=== PATIENT | male | born 1995 | race Caucasian/White ===

== ENCOUNTER 2023-08-07 09:08 | Outpatient (AMB) | payer OTHER, SELFPAY ==
--- NOTE | 2023-08-07 09:23 | A.OFFPC_ITS ---
Vital Signs 08/07/23 09:24 Height 6 ft 1.5 in Weight 212 lb BMI 27.6 BP 126/78 Blood Pressure Location Lt brachial Position Sitting Pulse 101 H Pulse Source Pulse Oximeter Pulse Oximetry (%) 100 Oxygen Delivery Method Room Air Intake Visit Reasons: Establish care PE Intake Note: Pt is here today for PE. Allergies No Known Allergies Allergy (Verified 08/07/23 09:27) Medication List - Last Reconciled 08/07/23 by Alma Vargas MD No Known Home Meds Tobacco use date assessed: 08/07/23 Dental Screening Dental Screen Date: 08/07/23 Did you have a dental visit in the last 12 months?: Yes Did you have a dental problem in the last 6 months where you did not have access to dental care?: No Was dental information given to patient?: Patient has dentist HPI Establish care PE HPI Details Pt presents for JUNIOR PROJECT MANAGER PE. Pt reports increased stress at work, having frequent headaches, general muscle pains, insomnia, difficulty concentrating. Patient denies depression. [facility] Family History Father No problems noted. Mother No problems noted. Social History (Updated 08/07/23 @ 09:57 by Alma Vargas MD) Household Members Other:: , works at machine shop Housing: House Patient Tobacco Use Status: Never used Tobacco e-Cigarette/Vaping Use: Never Used Current occupational status: employed Cognitive needs: No Hearing needs: No Vision needs: Yes Questionnaire PHQ-9 Over the last 2 weeks, how often have you been bothered by any of the following problems? 1. Little interest or pleasure in doing things: more than half the days 2. Feeling down, depressed, or hopeless: more than half the days 3. Trouble falling or staying asleep, or sleeping too much: several days 4. Feeling tired or having little energy: more than half the days 5. Poor appetite or overeating: more than half the days 6. Feeling bad about yourself - or that you are a failure or have let yourself or your family down: several days 7. Trouble concentrating on things, such as reading the newspaper or watching television: not at all 8. Moving or speaking so slowly that other people could have noticed. Or the opposite - being so fidgety or restless that you have been moving around a lot more than usual: not at all 9. Thoughts that you would be better off or of hurting yourself in some way: not at all Total score: 10 Source: Developed by Drs. Elías Torres, Nicol Godfrey, Thanh Garza and colleagues, with an educational em from [employer]. Thrive Questionnaire Date Thrive assessed: 08/07/23 I am a: Patient What is your living situation today?: I have a steady place to live Within the past 12 months, did the food you bought not last and you didn't have the money to get more?: Never true Within the past 12 months, did you worry whether your food would run out before you got money to buy more?: Never true Do you have trouble paying for medicines?: No Do you have trouble getting transportation to medical appointments?: No Do you have trouble paying your heating and electricity bill?: No Do you have trouble taking care of your child, family member or friend?: No Do you have trouble with day-to-day activities such as bathing, preparing meals, shopping, managing finances, etc.?: No Are you currently unemployed and looking for a job?: No Are you interested in more education?: No Please select the resources that you would like help with: None AUDIT C Alcohol Use Questionnaire (AUDIT-C) 1. How often do you have a drink containing alcohol?: Monthly or less 2. How many drinks containing alcohol do you have on a typical day when you are drinking?: 1 or 2 3. How often do you have six or more drinks on one occasion?: Never Total Score: 1 CAMACHO-7 AMB Questionnaire CAMACHO-7 Date CAMACHO - 7 assessed: 08/07/23 Feeling nervous, anxious, or on edge: 2 = More than half the days Not being able to stop or control worryin = Several days Worrying too much about different things: 2 = More than half the days Trouble relaxin = More than half the days Being so restless that it is hard to sit still: 0 = Not at all Becoming easily annoyed or irritable: 1 = Several days Feeling afraid as if something awful might happen: 0 = Not at all Total CAMACHO-7 score (0-4 normal; 5-9 mild; 10-14 moderate; 15-21 severe): 8 Source: Developed by Drs. Elías Torres, Nicol Godfrey, Thanh Garza and colleagues, with an educational em from [employer]. Review of Systems Const All systems reviewed & are unremarkable except as noted in HPI and below Reports no additional complaints Eyes Reports no additional complaints ENT Reports no additional complaints Card Reports no additional complaints Resp Reports no additional complaints GI Reports no additional complaints Reports no additional complaints Physical exam (Primary Care) Vital Signs: Last Vital Signs Pulse 101 H 08/07/23 09:24 BP 126/78 08/07/23 09:24 Pulse Ox 100 08/07/23 09:24 Oxygen Delivery Method Room Air 08/07/23 09:24 BMI result Body Mass Index 27.6 Tobacco/Smoking Status: Tobacco use Status Tobacco use date assessed 08/07/23 08/07/23 09:31 Patient Tobacco Use Status Never used Tobacco 08/07/23 09:57 e-Cigarette/Vaping Use Never Used 08/07/23 09:57 Const General: no acute distress HENMT Head: Yes normal to inspection Ears: hearing grossly normal bilaterally General nose exam: Normal external nose present Face and sinus: Yes normal facial exam Mouth: Normal oral and palatal mucosa present Throat: Yes posterior oropharynx normal Eyes General: appearance normal, both eyes and all related structures Neck Neck: Yes no lymphadenopathy and Yes supple Resp Effort & Inspection: normal respiratory effort Auscultation: clear to auscultation bilaterally Cardio Rhythm: regular rhythm Heart sounds: S1 normal heart sound present and S2 normal heart sound present GI Inspection: Yes normal to inspection Palpation (GI): Soft to palpation Percussion: Yes normal to percussion Auscultation: normal bowel sounds Assessment and Plan Assessment & Plan (1) Annual physical exam: Code(s): Z00.00 - Encounter for general adult medical examination without abnormal findings Plan: Well-balanced diet regular exercise discussed with the patient stress management discussed. Patient will be out of work from 08/01/2023 until November 18 2023. He will return for fasting blood work (2) Microscopic hematuria: Comment: negative cystoscopy 2017 Code(s): R31.29 - Other microscopic hematuria Plan: Check UA Orders: Orders Complete Blood Count Auto Diff Today Z00.00 - Encounter for general adult medical examination without abnormal findings Comprehensive [place]. Panel Fast Today Z00.00 - Encounter for general adult medical examination without abnormal findings UA w Microscopic Today Z00.00 - Encounter for general adult medical examination without abnormal findings Lipid Panel Today Z00.00 - Encounter for general adult medical examination without abnormal findings Coding Level of Care Code Est Pt Prev Care 18-39y(30523) Diagnoses Annual physical exam Z00.00 Microscopic hematuria R31.29
[2023-08-07 09:24] VITALS: BP 126/78; PULSE 101; O2SAT 100; BMI 27.6
== END 2023-08-07 10:14 | disposition home or self-care (01) ==
PROVIDERS: PCP Internal Medicine; Visit Provider Internal Medicine
DX: Z00.00 Encounter for general adult medical examination without abnormal findings (principal); R31.29 Other microscopic hematuria
CPT/HCPCS: 99395

== ENCOUNTER 2023-08-08 06:45 | Outpatient (REF) | payer OTHER, SELFPAY ==
[2023-08-08 11:14] LABS: MANUAL DIFF FLAG NO
[2023-08-08 11:42] LABS: Basophils Percent Auto 0.8 % (0-2); Eosinophils Absolute Auto 0.1 X10*3/uL (0.0-0.4); Eosinophils Percent Auto 2.7 % (0-4); Hematocrit 48.1 % (42.0-52.0); Hemoglobin 16.1 g/dl (14.0-18.0); Imm Gran Abs Auto 0.01 X10*3/uL (0.00-0.03); Imm Gran Pct Auto 0.2 % (0.0-0.4); Lymphocytes Absolute Auto 2.1 X10*3/uL (1.2-4.9); Lymphocytes Percent Auto 43.4 % (20-40); Mean Corpuscular HGB Conc 33.5 g/dl (31.0-36.0); Mean Corpuscular Hemoglobin 29.1 pg (27.0-33.0); Mean Platelet Volume 10.2 fL (9.4-12.4); Monocytes Absolute Auto 0.5 X10*3/uL (0.1-1.2); Monocytes Percent Auto 11.4 % (2-11); Neutrophils Percent Auto 41.5 % (45-73); Platelet Count 219 X10*3/uL (160-400); Red Blood Count 5.53 X10*6/uL (4.60-5.80); Red Cell Distribution Width 11.3 % (11.0-16.0); White Blood Count 4.8 X10*3/uL (4.8-10.8)
[2023-08-08 11:52] LABS: Appearance Urine Clear; Color Urine Yellow; Glucose Urine UA Negative (Negative); Leukocyte Esterase Urine Negative (Negative); Nitrite Urine Negative (Negative); UMIC TRIGGER UA YES; Urine Blood Small (1+) (Negative); Urine Ketones Negative (Negative); Urine Protein Negative (Neg-Trace)
[2023-08-08 11:56] LABS: Alanine Aminotransferase 26 U/L (0-40); Albumin Level 4.8 g/dL (3.5-5.0); Alkaline Phosphatase 66 U/L (39-117); Anion Gap 11 (12-20); Aspartate Amino Transferase 23 U/L (5-37); Bacteria Urine None Seen (None Seen); Bilirubin Total 1.7 mg/dL (0.0-1.0); Blood Urea Nitrogen 15 mg/dL (9-16); Calcium 9.6 mg/dL (8.4-10.2); Carbon Dioxide 28 mmol/L (22-29); Chloride 104 mmol/L (96-108); Cholesterol 173 mg/dL (<200); Estimated Glomerular Filt Rate > 60; Glucose Fasting 96 mg/dL (60-99); HDL Cholesterol 55 mg/dL (>40); Hyaline Casts Urine 0-2 /LPF (0-2); LDL Cholesterol Calculated 101 mg/dL (<100); Potassium 3.7 mmol/L (3.3-5.1); Sodium 139 mmol/L (135-145); Squamous Epithelial Cell Urine 0-2 /HPF (0-2); Total Protein 7.6 g/dL (6.5-8.0); Triglycerides 87 mg/dL (<150); WBC Urine 0-5 /HPF (0-5)
== END 2023-08-08 06:46 | disposition home or self-care (01) ==
LOC: HO.HMGCLDS 06:45
PROVIDERS: PCP Internal Medicine; Visit Provider Internal Medicine
DX: Z00.00 Encounter for general adult medical examination without abnormal findings (principal)
CPT/HCPCS: 36415; 80053; 80061; 81001; 85025

== ENCOUNTER 2024-08-21 07:23 | Outpatient (AMB) | payer OTHER, SELFPAY ==
--- NOTE | 2024-08-21 07:38 | MHC.PC.OV ---
Vital Signs 08/21/24 07:40 08/21/24 10:08 Height 6 ft 1 in Weight 216 lb BMI 28.5 BP 140/68 H 130/80 Blood Pressure Location Lt brachial Rt brachial Position Sitting Sitting Pulse 83 Pulse Source Pulse Oximeter Pulse Oximetry (%) 99 Oxygen Delivery Method Room Air Intake Visit Reasons: PE Intake Note: Pt is here today for his PE Allergies No Known Allergies Allergy (Verified 08/21/24 07:46) Medication List - Last Reconciled 08/21/24 by Alma Vargas MD No Known Home Meds Tobacco use date assessed: 08/21/24 Dental Screening Dental Screen Date: 08/21/24 Did you have a dental visit in the last 12 months?: Yes Did you have a dental problem in the last 6 months where you did not have access to dental care?: No Was dental information given to patient?: Patient has dentist HPI PE HPI Details Patient presents for physical PFSH Family History Father No problems noted. Mother No problems noted. Social History Household Members Other:: , works at machine shop Housing: House Patient Tobacco Use Status: Never used Tobacco e-Cigarette/Vaping Use: Never Used service: No Current occupational status: employed Cognitive needs: No Hearing needs: No Vision needs: Yes Questionnaire PHQ-9 Over the last 2 weeks, how often have you been bothered by any of the following problems? 1. Little interest or pleasure in doing things: not at all 2. Feeling down, depressed, or hopeless: not at all 3. Trouble falling or staying asleep, or sleeping too much: not at all 4. Feeling tired or having little energy: not at all 5. Poor appetite or overeating: not at all 6. Feeling bad about yourself - or that you are a failure or have let yourself or your family down: not at all 7. Trouble concentrating on things, such as reading the newspaper or watching television: not at all 8. Moving or speaking so slowly that other people could have noticed. Or the opposite - being so fidgety or restless that you have been moving around a lot more than usual: not at all 9. Thoughts that you would be better off or of hurting yourself in some way: not at all Total score: 0 Depression Screening Interpretation: Negative Depression Screening Done: Yes [id number] - PHQ-9 Billing: Yes Source: Developed by Drs. Elías Torres, Nicol Godfrey, Thanh Garza and colleagues, with an educational em from [employer]. Thrive Questionnaire Date Thrive assessed: 08/21/24 I am a: Patient What is your living situation today?: I have a steady place to live Within the past 12 months, did the food you bought not last and you didn't have the money to get more?: Never true Within the past 12 months, did you worry whether your food would run out before you got money to buy more?: Never true Do you have trouble paying for medicines?: No Do you have trouble getting transportation to medical appointments?: No Do you have trouble paying your heating and electricity bill?: No Do you have trouble taking care of your child, family member or friend?: No Do you have trouble with day-to-day activities such as bathing, preparing meals, shopping, managing finances, etc.?: No Are you interested in more education?: No Please select the resources that you would like help with: None Currently or been in a relationship where the following occur: No concerns reported THRIVE Score: 0 AUDIT C Alcohol Use Questionnaire (AUDIT-C) 1. How often do you have a drink containing alcohol?: 2-4 times a month 2. How many drinks containing alcohol do you have on a typical day when you are drinking?: 1 or 2 3. How often do you have six or more drinks on one occasion?: Never Total Score: 2 CAMACHO-7 AMB Questionnaire CAMACHO-7 Date CAMACHO - 7 assessed: 08/21/24 Feeling nervous, anxious, or on edge: 0 = Not at all Not being able to stop or control worryin = Not at all Worrying too much about different things: 1 = Several days Trouble relaxin = Several days Being so restless that it is hard to sit still: 0 = Not at all Becoming easily annoyed or irritable: 0 = Not at all Feeling afraid as if something awful might happen: 0 = Not at all Total CAMACHO-7 score (0-4 normal; 5-9 mild; 10-14 moderate; 15-21 severe): 2 Source: Developed by Drs. Elías Torres, Nicol Godfrey, Thanh Garza and colleagues, with an educational em from [employer]. Review of Systems Const All systems reviewed & are unremarkable except as noted in HPI and below Eyes Reports no additional complaints ENT Reports no additional complaints Card Reports no additional complaints Resp Reports no additional complaints GI Reports no additional complaints Reports no additional complaints Physical exam (Primary Care) Vital Signs: Last Vital Signs Pulse 83 08/21/24 07:40 BP 140/68 H 08/21/24 07:40 Pulse Ox 99 08/21/24 07:40 Oxygen Delivery Method Room Air 08/21/24 07:40 BMI result Body Mass Index 28.5 Tobacco/Smoking Status: Tobacco use Status Tobacco use date assessed 08/21/24 08/21/24 07:49 Patient Tobacco Use Status Never used Tobacco 08/21/24 07:40 e-Cigarette/Vaping Use Never Used 08/21/24 07:40 PHQ-9: PHQ-9 Score PHQ-9: Total score 0 08/21/24 07:40 Depression Screening Interpretation: Negative Thrive Assessment: Date of Thrive Assessment Date Thrive assessed 08/21/24 08/21/24 07:40 Currently or been in a relationship where the following occur: No concerns reported Const General: no acute distress HENMT Ears: hearing grossly normal bilaterally Throat: Yes posterior oropharynx normal Neck Neck: Yes no lymphadenopathy and Yes supple Resp Effort & Inspection: normal respiratory effort Auscultation: clear to auscultation bilaterally Cardio Rhythm: regular rhythm Heart sounds: S1 normal heart sound present and S2 normal heart sound present GI Inspection: Yes normal to inspection Palpation (GI): Soft to palpation Percussion: Yes normal to percussion Auscultation: normal bowel sounds Coding Level of Care Code Est Pt Prev Care 18-39y(15459) Diagnoses Microscopic hematuria R31.29 Annual physical exam Z00.00 Elevated blood pressure reading without diagnosis of hypertension R03.0 Assessment & Plan Assessment & Plan (1) Microscopic hematuria: Comment: negative cystoscopy 2017 Code(s): R31.29 - Other microscopic hematuria Category: Medical Plan: Check UA and urine cytology if persistent microscopic hematuria obtain renal ultrasound. (2) Annual physical exam: Code(s): Z00.00 - Encounter for general adult medical examination without abnormal findings Category: Medical Plan: Well-balanced diet regular physical activity discussed with the patient. Check fasting labs today (3) Elevated blood pressure reading without diagnosis of hypertension: Code(s): R03.0 - Elevated blood-pressure reading, without diagnosis of hypertension Category: Medical Plan: Patient has been monitoring blood pressure at home and getting normal readings. He will follow-up in 2 months and bring his blood pressure monitor to compare the readings Orders: Orders Comprehensive [place]. Panel Fast Today R31.29 - Other microscopic hematuria, Z00.00 - Encounter for general adult medical examination without abnormal findings Complete Blood Count Auto Diff Today R31.29 - Other microscopic hematuria, Z00.00 - Encounter for general adult medical examination without abnormal findings Urine Cytology Today R31.29 - Other microscopic hematuria, Z00.00 - Encounter for general adult medical examination without abnormal findings TSH reflex Free T4 Today R31.29 - Other microscopic hematuria, Z00.00 - Encounter for general adult medical examination without abnormal findings UA w Microscopic Today R31.29 - Other microscopic hematuria, Z00.00 - Encounter for general adult medical examination without abnormal findings Lipid Panel Today R31.29 - Other microscopic hematuria, Z00.00 - Encounter for general adult medical examination without abnormal findings
[2024-08-21 07:40] VITALS: BP 140/68; PULSE 83; O2SAT 99; BMI 28.5
[2024-08-21 10:08] VITALS: BP 130/80
== END 2024-08-21 08:22 | disposition home or self-care (01) ==
PROVIDERS: PCP Internal Medicine; Visit Provider Internal Medicine
DX: R31.29 Other microscopic hematuria (principal); Z00.00 Encounter for general adult medical examination without abnormal findings; R03.0 Elevated blood-pressure reading, without diagnosis of hypertension

== ENCOUNTER → 2024-08-21 07:23 | Outpatient (BNVA) | payer OTHER, SELFPAY | PROVIDERS: PCP Internal Medicine; Visit Provider Internal Medicine | DX: Z00.00 Encounter for general adult medical examination without abnormal findings (principal); R31.29 Other microscopic hematuria; R03.0 Elevated blood-pressure reading, without diagnosis of hypertension | CPT/HCPCS: 96127 ==

== ENCOUNTER 2024-08-21 08:24 | Outpatient (REF) | payer OTHER, SELFPAY ==
[2024-08-21 10:08] LABS: MANUAL DIFF FLAG NO
[2024-08-21 10:10] LABS: Basophils Percent Auto 0.6 % (0-2); Eosinophils Absolute Auto 0.2 X10*3/uL (0.0-0.4); Eosinophils Percent Auto 3.2 % (0-4); Hematocrit 46.7 % (42.0-52.0); Hemoglobin 16.3 g/dl (14.0-18.0); Imm Gran Abs Auto 0.02 X10*3/uL (0.00-0.03); Imm Gran Pct Auto 0.4 % (0.0-0.4); Lymphocytes Absolute Auto 1.9 X10*3/uL (1.2-4.9); Lymphocytes Percent Auto 41.3 % (20-40); Mean Corpuscular HGB Conc 34.9 g/dl (31.0-36.0); Mean Corpuscular Hemoglobin 29.9 pg (27.0-33.0); Mean Corpuscular Volume 85.7 fL (80.0-98.0); Mean Platelet Volume 9.9 fL (9.4-12.4); Monocytes Absolute Auto 0.6 X10*3/uL (0.1-1.2); Monocytes Percent Auto 11.8 % (2-11); Neutrophils Percent Auto 42.7 % (45-73); Platelet Count 204 X10*3/uL (160-400); Red Blood Count 5.45 X10*6/uL (4.60-5.80); Red Cell Distribution Width 11.3 % (11.0-16.0); White Blood Count 4.7 X10*3/uL (4.8-10.8)
[2024-08-21 10:17] LABS: Urine Cytology See Pathology rpt
[2024-08-21 10:54] LABS: Alanine Aminotransferase 47 U/L (0-40); Albumin Level 4.8 g/dL (3.5-5.0); Alkaline Phosphatase 71 U/L (39-117); Anion Gap 11 (12-20); Aspartate Amino Transferase 26 U/L (5-37); Bilirubin Total 1.3 mg/dL (0.0-1.0); Blood Urea Nitrogen 19 mg/dL (9-16); Calcium 9.8 mg/dL (8.4-10.2); Carbon Dioxide 28 mmol/L (22-29); Chloride 105 mmol/L (96-108); Cholesterol 224 mg/dL (<200); Estimated Glomerular Filt Rate > 60; Glucose Fasting 98 mg/dL (60-99); HDL Cholesterol 56 mg/dL (>40); LDL Cholesterol Calculated 148 mg/dL (<100); Potassium 3.7 mmol/L (3.3-5.1); Sodium 140 mmol/L (135-145); Total Protein 7.7 g/dL (6.5-8.0); Triglycerides 104 mg/dL (<150)
[2024-08-21 10:56] LABS: Appearance Urine Clear; Color Urine Yellow; Glucose Urine UA Negative (Negative); Leukocyte Esterase Urine Negative (Negative); Nitrite Urine Negative (Negative); PH 6.5 (5.0-9.0); Specific Gravity - Urine 1.025 (1.005-1.025); UMIC TRIGGER UA YES; Urine Blood Trace (Negative); Urine Ketones Negative (Negative); Urine Protein Negative (Neg-Trace)
[2024-08-21 10:57] LABS: TSH reflex Free T4 1.34 uIU/mL (0.32-4.0)
[2024-08-21 11:00] LABS: Bacteria Urine None Seen (None Seen); Hyaline Casts Urine 0-2 /LPF (0-2); Squamous Epithelial Cell Urine 0-2 /HPF (0-2); WBC Urine 0-5 /HPF (0-5)
== END 2024-08-21 08:25 | disposition home or self-care (01) ==
LOC: HO.HMGCLDS 08:24
PROVIDERS: PCP Internal Medicine; Visit Provider Internal Medicine
DX: Z00.00 Encounter for general adult medical examination without abnormal findings (principal); R31.29 Other microscopic hematuria
CPT/HCPCS: 36415; 80053; 80061; 81001; 84443; 85025; 88112

== ENCOUNTER 2024-09-03 08:42 | Outpatient (REF) | payer OTHER, SELFPAY | END 2024-09-03 08:43 | disposition home or self-care (01) | LOC: HO.HMGCX 08:42 | PROVIDERS: PCP Internal Medicine; Visit Provider Internal Medicine | DX: R31.29 Other microscopic hematuria (principal) | CPT/HCPCS: 76770; 76775 ==

== ENCOUNTER 2024-10-31 09:16 | Outpatient (AMB) | payer OTHER, SELFPAY ==
[2024-10-31 09:27] VITALS: BP 118/76; PULSE 78; O2SAT 98; BMI 27.7
--- NOTE | 2024-10-31 09:27 | A.OFFPC_ITS ---
Vital Signs 10/31/24 09:27 Height 6 ft 1 in Weight 210 lb BMI 27.7 BP 118/76 Blood Pressure Location Rt brachial Position Sitting Pulse 78 Pulse Source Pulse Oximeter Pulse Oximetry (%) 98 Oxygen Delivery Method Room Air Intake Visit Reasons: 2 months f/up Intake Note: Pt is here today for a follow up visit. Allergies No Known Allergies Allergy (Verified 10/31/24 09:29) Tobacco use date assessed: 10/31/24 Dental Screening Dental Screen Date: 08/21/24 HPI 2 months f/up HPI Details Patient presents for the follow-up. He is moving to [place]. Patient has been monitoring his blood pressure at home with normal readings. He had a negative workup including cystoscopy for microscopic hematuria by Urology and still waiting for the results of renal ultrasound. [facility] Family History Father No problems noted. Mother No problems noted. Social History Household Members Other:: , works at [employer] Housing: House Patient Tobacco Use Status: Never used Tobacco e-Cigarette/Vaping Use: Never Used service: No Current occupational status: employed Cognitive needs: No Hearing needs: No Vision needs: Yes Questionnaire Thrive Questionnaire Date Thrive assessed: 08/21/24 I am a: Patient What is your living situation today?: I have a steady place to live Within the past 12 months, did the food you bought not last and you didn't have the money to get more?: Never true Within the past 12 months, did you worry whether your food would run out before you got money to buy more?: Never true Do you have trouble paying for medicines?: No Do you have trouble getting transportation to medical appointments?: No Do you have trouble paying your heating and electricity bill?: No Do you have trouble taking care of your child, family member or friend?: No Do you have trouble with day-to-day activities such as bathing, preparing meals, shopping, managing finances, etc.?: No Are you currently unemployed and looking for a job?: No Are you interested in more education?: No Please select the resources that you would like help with: None Currently or been in a relationship where the following occur: No concerns re ported THRIVE Score: 0 CAMACHO-7 AMB Questionnaire CAMACHO-7 Date CAMACHO - 7 assessed: 08/21/24 Source: Developed by Drs. Elías Torres, Nicol Godfrey, Thanh Garza and colleagues, with an educational em from [employer]. Review of Systems Const All systems reviewed & are unremarkable except as noted in HPI and below Reports no additional complaints Eyes Reports no additional complaints ENT Reports no additional complaints Card Reports no additional complaints Resp Reports no additional complaints GI Reports no additional complaints Reports no additional complaints Musc Reports no additional complaints Physical exam (Primary Care) Vital Signs: Last Vital Signs Pulse 78 10/31/24 09:27 BP 118/76 10/31/24 09:27 Pulse Ox 98 10/31/24 09:27 Oxygen Delivery Method Room Air 10/31/24 09:27 BMI result Body Mass Index 27.7 Tobacco/Smoking Status: Tobacco use Status Tobacco use date assessed 10/31/24 10/31/24 09:29 Patient Tobacco Use Status Never used Tobacco 10/31/24 09:29 e-Cigarette/Vaping Use Never Used 10/31/24 09:29 Thrive Assessment: Date of Thrive Assessment Date Thrive assessed 08/21/24 10/31/24 09:29 Currently or been in a relationship where the following occur: No concerns reported Const General: no acute distress HENMT Head: Yes normal to inspection Face and sinus: Yes normal facial exam Eyes General: appearance normal, both eyes and all related structures Neck Neck: Yes no lymphadenopathy and Yes supple Resp Effort & Inspection: normal respiratory effort Auscultation: clear to auscultation bilaterally Cardio Rhythm: regular rhythm Heart sounds: S1 normal heart sound present and S2 normal heart sound present GI Inspection: Yes normal to inspection Palpation (GI): Soft to palpation Percussion: Yes normal to percussion Auscultation: normal bowel sounds Coding Level of Care Code Est Pt Level 3 (38787) Diagnoses Elevated blood pressure reading without diagnosis of hypertension R03.0 Microscopic hematuria R31.29 Assessment & Plan Assessment & Plan (1) Elevated blood pressure reading without diagnosis of hypertension: Code(s): R03.0 - Elevated blood-pressure reading, without diagnosis of hypertension Category: Medical Plan: Continue regular exercise well-balanced diet patient will continue to monitor his blood pressure. (2) Microscopic hematuria: Comment: negative cystoscopy 2018 Code(s): R31.29 - Other microscopic hematuria Category: Medical Plan: Obtain results of renal ultrasound
== END 2024-10-31 10:10 | disposition home or self-care (01) ==
PROVIDERS: PCP Internal Medicine; Visit Provider Internal Medicine
DX: R03.0 Elevated blood-pressure reading, without diagnosis of hypertension (principal); R31.29 Other microscopic hematuria

== ENCOUNTER → 2024-10-31 09:16 | Outpatient (BNVA) | payer OTHER, SELFPAY | PROVIDERS: PCP Internal Medicine; Visit Provider Internal Medicine ==